=== PATIENT | male | born 1950 | race Caucasian/White ===

== ENCOUNTER 2020-09-15 16:08 | Emergency (ER) | payer MEDICARE ==
--- NOTE | 2020-09-15 16:50 | ED ---
Fall HPI <JarredGoyo - Last Filed: 09/15/20 17:30> - General Source: patient Mode of arrival: ambulatory <Marielena Don - Last Filed: 09/15/20 18:30> - General Chief Complaint: Fall Stated Complaint: fall/head lac Time Seen by Provider: 09/15/20 16:17 - History of Present Illness Initial Comments: Patient is a 70-year-old male presenting to the emergency department after having a fall earlier today. Patient states about noon today he was on his ladder about 5 feet up trying to put up a piece of board in his cry when he fell backwards hitting the back of his head on cement. Patient denies loss of consciousness. He states after he fell he got up and noticed a little bit of blood on the concrete but thought it was from a cut on his finger so he did not think anything of it. Patient states he initially he was doing, went inside to lay down for a nap. Patient states when he woke up he noticed there was a red spot on his couch where his head was resting. Patient and spoke with his neighbor about what happened and they recommended coming to the ER. This all happened about 4 hours prior to arrival. At this time patient has no specific complaints, other than some mild pain on his right calf. He denies having a headache, blurry vision, chest pain, back pain, shortness of breath. He has no further complaints at this time. Upon arrival to the ER his vital signs are stable. (Marielena Don) - Related Data Allergies Allergy/AdvReac Type Severity Reaction Status Date / Time cephalexin [From Keflex] Allergy Rash/Hives Verified 09/15/20 16:12 Review of Systems ROS Other: All systems not noted in ROS Statement are negative. <Goyo Stern - Last Filed: 09/15/20 17:30> ROS Other: All systems not noted in ROS Statement are negative. <Marielena Don - Last Filed: 09/15/20 18:30> ROS Statement: Those systems with pertinent positive or pertinent negative responses have been documented in the HPI. Past Medical History Past Medical History: Diabetes Mellitus, Hypertension History of Any Multi-Drug Resistant Organisms: None Reported Past Surgical History: No Surgical Hx Reported Past Psychological History: No Psychological Hx Reported Smoking Status: Never smoker Past Alcohol Use History: Rare Past Drug Use History: None Reported <Marielena Don Amy - Last Filed: 09/15/20 18:30> General Exam Limitations: no limitations <Marielena Don - Last Filed: 09/15/20 18:30> - General Exam Comments Initial Comments: GENERAL: Patient is well-developed and well-nourished. Patient is nontoxic and in no acute distress. HEAD: Patient has a hematoma to the posterior right side of the skull that is mildly tender to the touch. There is a very small laceration to this area, no active bleeding. EYES: Pupils equal round and reactive to light, extraocular movements intact, sclera anicteric, conjunctiva are normal. Eyelids were unremarkable. ENT: TMs normal, nares patent, oropharynx clear without exudates. Moist mucous membranes. NECK: Normal range of motion, supple without lymphadenopathy or JVD. LUNGS: Unlabored respirations. Breath sounds clear to auscultation bilaterally and equal. No wheezes rales or rhonchi. HEART: Regular rate and rhythm without murmurs, rubs or gallops. ABDOMEN: Soft, nontender, normoactive bowel sounds. No guarding, no rebound. No masses appreciated. : Deferred MUSCULOSKELETAL: Normal extremities with adequate strength and normal range of motion, no pitting or edema. No clubbing or cyanosis. NEUROLOGICAL: Patient is alert and oriented x 3. Motor and sensory are also intact. Cranial nerves II through XII grossly intact. Symmetrical smile. Normal speech, normal gait. PSYCH: Normal mood, normal affect. SKIN: Warm, Dry, normal turgor. He has a very small 0.5 cm laceration to the posterior aspect of the skull, no active bleeding, no sutures or andres indicated. Patient also has an abrasion to the right lower leg, no active bleeding. (FlorenciaMarielena Reyes) Course <Goyo Stern - Last Filed: 09/15/20 17:30> Vital Signs 09/15/20 09/15/20 16:08 17:57 Temperature 97.8 F 97.9 F Pulse Rate 90 79 Respiratory 20 18 Rate Blood Pressure 147/79 137/59 O2 Sat by Pulse 99 97 Oximetry - Reevaluation(s) Reevaluation #1: 09/15/20 17:30 PA supervision: I personally evaluate this case patient presents after a fall. Imaging negative patient's exam was unremarkable except for some scalp abrasion. Patient be discharged (Goyo Stern) Medical Decision Making <Marielena Don - Last Filed: 09/15/20 18:30> - Medical Decision Making Patient is a 70-year-old male presenting after he fell about 4 hours prior to arrival hitting the back of his head. There was no loss of consciousness, patient is not on blood thinners. Patient's exam reveals a very small 0.5 cm laceration to the back of his head, no active bleeding, no sutures or andres needed. Patient does have a hematoma near the same area. They did a CT of the brain and C-spine which revealed no acute findings, no acute fractures. Patient has remained stable the ER. I discussed these findings with the patient. He is stable for discharge. I recommended limiting activities for the next few days. Strict return parameters were discussed with the patient and he verbalized understanding. Case discussed with Dr. Stern. (Marielena Don) Disposition <Goyo Stern - Last Filed: 09/15/20 17:30> Is patient prescribed a controlled substance at d/c from ED?: No <Marielena Don - Last Filed: 09/15/20 18:30> Clinical Impression: Fall, Hematoma of scalp Disposition: HOME SELF-CARE Condition: Stable Instructions (If sedation given, give patient instructions): Fall Prevention for Older Adults (ED) Additional Instructions: Please return to the Emergency Department if symptoms worsen or any other concerns. May apply ice the back of the head, Tylenol for discomfort. Referrals: Mechelle Blount MD [Primary Care Provider] - 1-2 days
--- NOTE | 2020-09-15 17:04 | CT ---
EXAMINATION TYPE: CT brain mel stephenson con DATE OF EXAM: 09/15/2020 COMPARISON: 09/04/2011 HISTORY: fall with Right sided posterior injury. memory loss and weakness. CT DLP: 1561 mGycm Automated exposure control for dose reduction was used. There is cerebral cortical atrophy. There is no mass effect nor midline shift. There is no sign of in tracranial hemorrhage. There is some narrowing of the C4-5 and C5-6 disc spaces with spurring. There is mild facet arthropathy in the mid cervical spine. Skull base is intact. The temporal bones are int act. IMPRESSION: Spondylotic changes in the cervical spine. No fracture. No significant change compared to old exam. Cerebral atrophy. No acute intracranial abnormality. Overall no significant change compared to old ex am.
[2020-09-15 17:58] VITALS: BP 137/59; PULSE 79; RESP 18; TEMP 97.9
== END 2020-09-15 17:58 | disposition home or self-care (01) ==
LOC: EC 16:08
DX: S01.01XA Laceration without foreign body of scalp, initial encounter (principal); S80.811A Abrasion, right lower leg, initial encounter; Z88.1 Allergy status to other antibiotic agents; W11.XXXA Fall on and from ladder, initial encounter; Y92.009 Unspecified place in unspecified non-institutional (private) residence as the place of occurrence of the external cause
CPT/HCPCS: 70450; 72125; 99283

== ENCOUNTER 2021-07-27 14:13 | Emergency (ER) | payer MEDICARE ==
[2021-07-27] MEDS ORDERED: DIPH,PERTUS(ACELL)TETVAC-LF 0.5 ML VIAL IM ONE (16:20)
[2021-07-27] MEDS ORDERED: BACITRACIN OINT 1 EACH PACKET TOPICAL ONE (16:33)
--- NOTE | 2021-07-27 16:33 | ED ---
General Adult HPI - General Chief complaint: Wound/Laceration Stated complaint: leg lac Time Seen by Provider: 07/27/21 16:20 Source: patient, RN notes reviewed Mode of arrival: ambulatory Limitations: no limitations - History of Present Illness Initial comments: 71-year-old well-appearing white male patient presents to the emergency room with complaints of an abrasion to his left lower leg from a chainsaw. Patient states that he was attempting to start a chainsaw and he bumped it against his lower leg. It was not running at the time. He sustained 2 abrasions that were superficial. There is no active bleeding. His tetanus shot is not up-to-date. He has no other injuries. He is able to ambulate with no difficulty and he has no concern for fractures. He states his concern was that he couldn't stop oozing blood. He is on aspirin a day. -: hour(s) (6) Location: left, lower extremity Severity scale (1-10): 2 Quality: aching Consistency: intermittent Improves with: immobilization Worsens with: other (palpation) Associated Symptoms: denies other symptoms Treatments Prior to Arrival: other (dressing) - Related Data Previous Rx's Medication Instructions Recorded Clindamycin HCl 300 mg PO Q8H 7 Days #21 cap 07/27/21 Clindamycin [Cleocin] 150 mg PO Q8H 7 Days #21 cap 07/27/21 Allergies Allergy/AdvReac Type Severity Reaction Status Date / Time cephalexin [From Keflex] Allergy Rash/Hives Verified 07/27/21 15:02 Review of Systems ROS Statement: Those systems with pertinent positive or pertinent negative responses have been documented in the HPI. ROS Other: All systems not noted in ROS Statement are negative. Past Medical History Past Medical History: Diabetes Mellitus, Hypertension History of Any Multi-Drug Resistant Organisms: None Reported Past Surgical History: No Surgical Hx Reported Past Psychological History: No Psychological Hx Reported Smoking Status: Never smoker Past Alcohol Use History: Rare Past Drug Use History: None Reported General Exam Limitations: no limitations General appearance: alert, in no apparent distress Head exam: Present: atraumatic, normocephalic, normal inspection Eye exam: Present: normal appearance, PERRL, EOMI. Absent: scleral icterus, conjunctival injection, periorbital swelling ENT exam: Present: normal exam, normal oropharynx, mucous membranes moist Neck exam: Present: normal inspection, full ROM. Absent: tenderness, meningismus, lymphadenopathy Respiratory exam: Present: normal lung sounds bilaterally. Absent: respiratory distress, wheezes, rales, rhonchi, stridor Cardiovascular Exam: Present: regular rate, normal rhythm, normal heart sounds. Absent: systolic murmur, diastolic murmur, rubs, gallop, clicks GI/Abdominal exam: Present: soft, normal bowel sounds. Absent: distended, tenderness, guarding, rebound, rigid Left Knee exam: Present: full ROM Lower Leg exam: Present: full ROM, tenderness, swelling, abrasion (2 linear abrasions to the left bonilla approximately 5 mm each no active bleeding.), ecchymosis. Absent: erythema Ankle exam: Present: normal inspection Foot/Toe exam: Present: full ROM Neurovascular tendon exam: Present: no vascular compromise. Absent: abnormal cap refill, pallor Gait: observed and normal Back exam: Present: normal inspection, full ROM. Absent: tenderness Neurological exam: Present: alert, oriented X3, CN II-XII intact Psychiatric exam: Present: normal affect, normal mood Skin exam: Present: warm, dry, intact, normal color. Absent: rash Course Vital Signs 07/27/21 07/27/21 14:58 17:09 Temperature 98.7 F 98.2 F Pulse Rate 99 64 Respiratory 20 16 Rate Blood Pressure 110/62 120/78 O2 Sat by Pulse 99 98 Oximetry Medical Decision Making - Medical Decision Making This is a well-appearing male with 2 small 0.5cm abrasions to his left anterior bonilla. Bleeding is controlled. His tetanus shot was updated at this visit. He was prescribed antibiotics prophylactically as he is diabetic. He is able to ambulate does not complain of any pain. His wounds were dressed with bacitracin and fabiano wrap. Disposition Clinical Impression: Abrasion Clinical Impression: (Ruled Out): Laceration Disposition: HOME SELF-CARE Condition: Good Instructions (If sedation given, give patient instructions): Abrasion (ED) Additional Instructions: Keep wounds clean and dry. Neosporin dressing twice a day. Take antibiotics as prescribed. Follow-up with primary care doctor this week. Return if any new or worsening symptoms including signs of infection, drainage fever and/or redness. Prescriptions: Clindamycin [Cleocin] 150 mg PO Q8H 7 Days #21 cap Clindamycin HCl 300 mg PO Q8H 7 Days #21 cap Is patient prescribed a controlled substance at d/c from ED?: No Referrals: Mechelle Blount MD [Primary Care Provider] - 1-2 days Time of Disposition: 16:33
[2021-07-27 17:10] VITALS: BP 120/78; PULSE 64; RESP 16; TEMP 98.2
== END 2021-07-27 17:09 | disposition home or self-care (01) ==
LOC: EC 14:13
DX: S80.812A Abrasion, left lower leg, initial encounter (principal); I10 Essential (primary) hypertension; E11.9 Type 2 diabetes mellitus without complications; Z88.1 Allergy status to other antibiotic agents; Z23 Encounter for immunization; W29.3XXA Contact with powered garden and outdoor hand tools and machinery, initial encounter; Y92.89 Other specified places as the place of occurrence of the external cause
CPT/HCPCS: 90471; 90715; 99282